=== PATIENT | female | born 1930 | race Caucasian/White ===

== ENCOUNTER 2017-10-02 08:22 | Observation (INO) | payer OTHER ==
[~2017-10-02] VITALS: Ht 144.8 cm; Wt 61.5 kg
[~2017-10-02 08:22] MED LIST: ACET325 PO; ALBU90OI61 INH; AMOX500 PO; DOCU100 PO; DULERA INH; FISH1000 PO; FLAX PO; FLUT.05NI; HYDACE5 PO; LOSA50 PO; METO50ER PO; MONT10T PO; NAPR500 PO; Protonix40 MG PO; RECLAST; ROSU10TA PO; RXHYD5325 PO; TIOT18 IH; TRAACE PO
[2017-10-02 12:03] LABS: Source, Urine Clean Catch
[2017-10-02 12:15] LABS: Appearance, Urine Clear (Clear); Bilirubin, Urine Neg (Neg); Blood, Urine 3+ (Neg); Color, Urine Yellow (P-Yellow); Glucose Qualitative, Urine Neg (Neg); Ketones, Urine Neg (Neg); Leukocyte Esterase, Urine 2+ (Neg); Nitrite, Urine Neg (Neg); Protein, Urine Neg (Neg); Urobilinogen, Urine NORM (Normal); pH, Urine 6.5 (5.0-8.0)
[2017-10-02 12:50] LABS: Bacteria Few /hpf; Squamous Epithelial Cells Few /hpf (Few)
[2017-10-02] MEDS ORDERED: ATOR20 PO (15:21)
[2017-10-02] MEDS ORDERED: LOSA50 PO (15:21)
[2017-10-02] MEDS ORDERED: MELO7.5 PO (15:22)
[2017-10-02] MEDS ORDERED: Elemental Calc600 MG PO (15:24)
[2017-10-02] MEDS ORDERED: MULTI VITAMIN1 EACH PO (15:25)
[2017-10-02] MEDS ORDERED: CHOL10002 PO (15:25)
[2017-10-02] MEDS ORDERED: BREO ELLIPTA 11 EACH MT (15:26)
[2017-10-02] MEDS ORDERED: MIRALAX17 GM PO (15:27)
[2017-10-02] MEDS ORDERED: HYDR1TAB94 PO (15:27)
[2017-10-02] MEDS ORDERED: ALBU90OI (15:28)
[2017-10-02] MEDS ORDERED: Ocuvite Lutein1 EACH PO (15:29)
[2017-10-02] MEDS ORDERED: INCRUSE ELLI62.5 MCG INH (15:29)
== END 2017-10-05 15:15 | disposition home or self-care (01) ==
LOC: ER 08:22 → MEDS 08:23
PROVIDERS: Emergency Medicine
DX: M54.9 Dorsalgia, unspecified (principal); I10 Essential (primary) hypertension; J44.9 Chronic obstructive pulmonary disease, unspecified; K21.9 Gastro-esophageal reflux disease without esophagitis; E78.5 Hyperlipidemia, unspecified; M81.0 Age-related osteoporosis without current pathological fracture; R26.9 Unspecified abnormalities of gait and mobility; Z79.899 Other long term (current) drug therapy; Z88.2 Allergy status to sulfonamides
CPT/HCPCS: 81001; 87086; 94640; 94760; 96372; 97110; 97116; 97162; 97530; 99285; G0378; G8978; G8979; J1885

== ENCOUNTER 2017-12-26 08:14 | Observation (INO) | payer OTHER ==
[~2017-12-26] VITALS: Ht 152.4 cm; Wt 59.7 kg
[~2017-12-26 08:14] MED LIST changes: +ALBU90OI; +ATOR20 PO; +BREO ELLIPTA 11 EACH MT; +CHOL10002 PO; +Elemental Calc600 MG PO; +HYDR1TAB94 PO; +INCRUSE ELLI62.5 MCG INH; +MELO7.5 PO; +MIRALAX17 GM PO; +MULTI VITAMIN1 EACH PO; +Ocuvite Lutein1 EACH PO
[2017-12-26] MEDS ORDERED: Metoprolol Succ25 MG PO (08:20)
[2017-12-26] MEDS ORDERED: LOSA50 PO (08:20)
[2017-12-26] MEDS ORDERED: PANT40 PO (08:21)
[2017-12-26] MEDS ORDERED: ATOR20 PO (08:21)
[2017-12-26] MEDS ORDERED: Mobic15 MG PO (08:21)
[2017-12-26] MEDS ORDERED: Norco 5-325 Ta1 EACH PO (10:42)
[2017-12-26] MEDS ORDERED: BREO ELLIPTA 11 EACH INH (14:21)
[2017-12-26] MEDS ORDERED: INCRUSE ELLI62.5 MCG INH (14:22)
[2017-12-26] MEDS ORDERED: ALBU90OI6 INH (14:23)
[2017-12-26] MEDS ORDERED: Super Calcium600 MG PO (14:26)
[2017-12-26] MEDS ORDERED: Hair, Skin & N1 EACH PO (14:27)
[2017-12-26] MEDS ORDERED: Ocuvite Lutein1 EACH PO (14:27)
[2017-12-26] MEDS ORDERED: Vitamin D2000 UNIT PO (14:27)
[2017-12-26] MEDS ORDERED: TYLENOL325 MG PO (14:28)
[2017-12-27 05:14] LABS: BASOPHILS ABSOLUTE AUTO 0.03 K/mm3 (0.00-0.23); BASOPHILS PERCENT AUTO 1 % (0-2); EOSINOPHILS ABSOLUTE AUTO 0.08 K/mm3 (0.00-0.68); EOSINOPHILS PERCENT AUTO 1 % (0-6); Hematocrit 37.9 % (33.0-51.0); Hemoglobin 12.6 g/dL (11.5-16.0); IMMATURE GRAN ABSOLUTE AUTO 0.02 K/mm3 (0.00-0.10); IMMATURE GRAN PERCENT AUTO 0 % (0-1); LYMPHOCYTES ABSOLUTE AUTO 0.63 K/mm3 (0.84-5.20); LYMPHOCYTES PERCENT AUTO 10 % (21-46); MONOCYTES ABSOLUTE AUTO 0.67 K/mm3 (0.16-1.47); MONOCYTES PERCENT AUTO 11 % (4-13); Mean Corpuscular HGB Conc 33.2 g/dL (31.5-36.5); Mean Corpuscular Volume 96 fL (80-100); Mean Platelet Volume 10.1 fL (9.1-12.4); NEUTROPHILS ABSOLUTE AUTO 4.94 K/mm3 (1.96-9.15); NEUTROPHILS PERCENT AUTO 78 % (41-73); Platelet Count 180 K/mm3 (150-400); RDW Coefficient Variation 12.5 % (11.7-14.2); RDW Standard Deviation 44.7 fL (35.1-46.3); Red Blood Cell Count 3.94 M/mm3 (3.80-5.20); White Blood Cell Count 6.37 K/mm3 (4.00-11.30)
[2017-12-31] MEDS ORDERED: ALBU2.5V5 NEB (15:37)
[2017-12-31] MEDS ORDERED: BISA10S PR (15:42)
[2017-12-31] MEDS ORDERED: BISA5EC PO (15:42)
[2017-12-31] MEDS ORDERED: SENN187 PO (15:45)
[2017-12-31] MEDS ORDERED: Milk Of Ma400 MG/5 M PO (15:45)
[2017-12-31] MEDS ORDERED: HYDR1TAB94 PO (15:45)
== END 2017-12-31 16:29 ==
LOC: ER 08:14 → MEDS 08:15 → ER 08:15 → MEDS 08:15 → ER 12-28 08:15 → MEDS 12-28 08:16
PROVIDERS: Family Medicine
DX: M80.88XA Other osteoporosis with current pathological fracture, vertebra(e), initial encounter for fracture (principal); I10 Essential (primary) hypertension; J44.9 Chronic obstructive pulmonary disease, unspecified; E78.00 Pure hypercholesterolemia, unspecified; H91.90 Unspecified hearing loss, unspecified ear; I42.1 Obstructive hypertrophic cardiomyopathy; M19.90 Unspecified osteoarthritis, unspecified site; K21.9 Gastro-esophageal reflux disease without esophagitis; Z79.899 Other long term (current) drug therapy; Z88.2 Allergy status to sulfonamides
CPT/HCPCS: 36415; 72100; 85025; 94640; 94760; 97110; 97116; 97162; 97530; 99285-25; G0378; G8978; G8979; J0360; J1650

== ENCOUNTER 2019-04-02 03:02 | Observation (INO) | payer OTHER ==
[~2019-04-02] VITALS: Ht 139.7 cm; Wt 128.0 kg
[~2019-04-02 03:02] MED LIST changes: +ALBU2.5V5 NEB; +ALBU90OI6 INH; +BISA10S PR; +BISA5EC PO; +BREO ELLIPTA 11 EACH INH; +Hair, Skin & N1 EACH PO; +Metoprolol Succ25 MG PO; +Milk Of Ma400 MG/5 M PO; +Mobic15 MG PO; +Norco 5-325 Ta1 EACH PO; +PANT40 PO; +SENN187 PO; +Super Calcium600 MG PO; +TYLENOL325 MG PO; +Vitamin D2000 UNIT PO
[2019-04-02 03:25] LABS: Hematocrit 46.1 % (33.0-51.0); Hemoglobin 15.2 g/dL (11.5-16.0); Mean Corpuscular HGB 32.3 pg (26.0-34.0); Mean Corpuscular Volume 98 fL (80-100); Mean Platelet Volume 9.6 fL (9.1-12.4); Platelet Count 264 K/mm3 (150-400); RDW Standard Deviation 43.8 fL (35.1-46.3)
[2019-04-02 03:46] LABS: Alanine Aminotransfer (ALT/SGP 25 U/L (12-78); Albumin, Blood 3.2 g/dL (3.4-5.0); Albumin/Globulin Ratio 0.8 (0.8-1.8); Alk Phos 54 U/L (50-136); Anion Gap 6 mmol/L (6-16); Aspartate Aminotrans (AST/SGOT 30 U/L (12-37); Bilirubin, Total 0.6 mg/dL (0.1-1.0); Blood Urea Nitrogen 23 mg/dL (8-24); Bun/Creatinine Ratio 58.4 (12.0-20.0); CHOL/HDL RATIO 2.6; CO2, Blood 29 mmol/L (21-32); Calcium, Blood 9.4 mg/dL (8.5-10.1); Chloride, Blood 102 mmol/L (98-108); Cholesterol 197 mg/dL (50-200); Creatinine, Blood 0.39 mg/dL (0.40-1.00); Glomerular Filtration Rate >60 (60-); Glucose, Blood 140 mg/dL (70-99); HDL Cholesterol 77 mg/dL (>39); LDL/HDL RATIO 1.3; Low Density Lipoprotein Chol 102 mg/dL (0-110); Magnesium, Blood 1.9 mg/dL (1.6-2.4); Potassium, Blood 4.3 mmol/L (3.5-5.5); Sodium, Blood 137 mmol/L (136-145); Total Protein, Blood 7.2 g/dL (6.4-8.2); Triglycerides 90 mg/dL (30-160); Troponin I 0.093 ng/mL (0.000-0.040); Very Low Density Lipoprot Chol 18 mg/dL (6-32)
[2019-04-02] MEDS ORDERED: MULTI-VITAMIN1 EAC2 PO (04:01)
[2019-04-02] MEDS ORDERED: Omega-31000 MG PO (04:01)
[2019-04-02] MEDS ORDERED: [UNRECOGNIZED DRUG - OTHER] PO (04:03)
[2019-04-02] MEDS ORDERED: HYDR1TAB94 PO (04:04)
[2019-04-02] MEDS ORDERED: PROLIA60 MG/1 ML SC (04:04)
[2019-04-02] MEDS ORDERED: OLME20 PO (04:04)
--- NOTE | 2019-04-02 07:24 | NUR ---
SHIFT SUMMARY PATIENT ARRIVED TO ICU @ 05:45. MONITORING EQUIPMENT WAS PLACED, HEPARIN GTT CONFIRMED. NO C/O PAIN. VSS. IT HAS BEEN A PLEASURE TAKING CARE OF THIS PATIENT.
--- NOTE | 2019-04-02 07:30 | NUR ---
ASSUMED CARE OF PT AT 0700. REPORT FROM CHRISTIAN HERNANDEZ. PT RESTING IN BED. A&OX 4. DENIES CP, SOB OR OTHER COMPLAINTS. HEPARIN INFUSING AT 13 UNITS/KG/MIN. HR 45-55, 1ST DEGREE BLOCK. PT P/W/D. LUNGS CLEAR. MAEW. ABD ROUND, SOFT AND NON TENDER. BT X 4. PT ABLE TO REPOSITION SELF IN BED. CALL LIGHT IN REACH. DR PATTEN AT BEDSIDE FOR ASSESSMENT. DISCUSSION REGARDING CODE STATUS, PT REQUESTING DNR/DNI. ORDER PLACED, DNR BAND APPLIED TO RIGHT WRIST. DAUGHTERS JERI AND HERB UPDATED AND AGREEABLE TO PLAN. PLAN FOR CONTINUED HEPARIN DRIP AND ECHO TODAY. WILL CONTINUE TO MONITOR.
[2019-04-02] MEDS ORDERED: ACET325 PO (07:50)
[2019-04-02] MEDS ORDERED: Refresh Eye Dr1 EACH (10:23)
[2019-04-02] MEDS ORDERED: REFRESH CELLUV1 EACH BOTHEYES (10:24)
--- NOTE | 2019-04-02 10:45 | NUR ---
Echocardiogram completed.
[2019-04-02] MEDS ORDERED: INCRUSE ELLI62.5 MCG INH (11:10)
--- NOTE | 2019-04-02 12:13 | NUR ---
DR PATTEN AT BEDSIDE TO DISCUSS RESULTS c PT AND FAMILY. JERI AND HERB PRESENT, HX AND CURRENT ECHO REVIEWED. PACEMAKER DISCUSSED, FAMILY DECLINED THIS INTERVENTION. WELDING MACHINE FEEDER UPDATED ON HOLDING METOROLOL THIS AM. POSSIBLE HOSPICE CARE DISCUSSED c PT AND FAMILY. AGREEABLE TO PALLATIVE CARE CONSULT, REINA NOTIFIED. DR PATTEN UPDATED DR CM. WILL CONTINUE TO MONITOR.
--- NOTE | 2019-04-02 13:05 | NUR ---
Initial palliative care consult: Marisol is an 88 year old lady who has a history of COPD, HTN, hypertrophic obstructive cardiomyopathy, GERD, macular degeneration,mitral regurgitation and uterine cancer. She was admitted to the ICU today for chest pain and increasing SOB. Marisol lives alone in a [place], [place]. Her dtr, Diamante comes twice a week on Mondays and Wednesdays to assist her with a shower, go out to eat and get a shopping together. Her other daughter, Lucina, comes on Fridays to assist with ADLs as needed. Marisol reports that she has a life alert system and wants to be able to remain as independent as possible for as long as she can. Marisol reports that she is homebound except for the one day each week that she is able to go out to lunch with her dtr. She reports her home is situated so she is able to access her refrigerator and heat meals with minimal physical exertion. She reports that she rinses her dishes and leaves them for her daughters to take care of on . She is able to ambulate with her walker, however her SOB has been increasing recently which makes ambulating much more difficult. Marisol and both her daughters verbalize understanding of Dr. Holley's consultation and findings. Marisol states that hospice is something she is considering. Explained hospice philosophy and answered questions. Provided them with hospice pamphlet and considering comfort care booklet per their request. Discussed expected disease progression and symptoms that will likely continue to worsen with time. They voice interest in hospice services but would like to discuss it as a family. Dtrs are concerned that they would need to work out the details of her increasing care needs. They want to do what's best for their mom, however they want to also respect her wishes of maintaining independence as long as possible. PC will allow Marisol and her daughters time to discuss the hospice option. Requested that they let staff know if they have additional questions or if they make a decision re: hospice. Farzaneh Hurst with social insurance administrator and nursing updated.
--- NOTE | 2019-04-02 15:38 | NUR ---
Requested by nursing to come to ICU lounge to talk with pt's daughters while Marisol is resting. Lucina and Diamante spoke with their mom after our conversation earlier today and they all have decided to pursue hospice services at discharge. They do not want to start comfort care while she is in the hospital. They are aware that Marisol remains at high risk for sudden cardiac . Both daughters agree they would like to respect their mom's wishes to remain as independent as possible for as long as possilbe. They both state that they will be more available to her and assist as needed while honoring her desire for independence. They report Marisol has a walker, a wheelchair, a BSC and an electric bed. The only equipment that they feel they will need at this time is home O2. They have chosen [facility]. Spoke with Farzaneh, social services manager, to update her. Pt's dtrs report that plan is likely to discharge pt tomorrow. Updated Dr. Blanco of pt's wishes to pursue hospice services at discharge. PC to remain available to assist with symptom managment and care planning.
--- NOTE | 2019-04-02 18:04 | NUR ---
SHIFT SUMMMARY DR PATTEN SPOKE AT LENGTH c PT AND DAUGHTERS REGARDING ECHO RESULTS AND DISEASE PROGRESSION. FAMILY MET kary HUANG FROM [facility]. PLAN FOR PT TO BE DISCHARGED TOMORROW ON HOSPICE. WILL NEED HOME O2. HEPARIN DRIP D/C'D THIS SHIFT. PT BRADYCARDIC ENTIRE SHIFT, RATE 45-50. REPORT TO KANU HERNANDEZ RN. PT TRANSFERRED TO MEDICAL FLOOR.
--- NOTE | 2019-04-02 18:38 | NUR ---
ARRIVED TO ROOM VIA W/C TRANSFER TO BED WITH MINIMAL ASSIST. A AND OX2 CONFUSED AT TIMES. DNR/DNI TRANSFERRING TO HOSPICE UPON DISCHARGE. PLEASANT. FREQUENT ROUNDING EXPLAINED TO PATIENT. CALL LIGHT WITHIN REACH AND BED LOW AND IN LOCKED POSITON. WATER PROVIDED AND AT BEDSIDE.
--- NOTE | 2019-04-03 06:03 | NUR ---
SHIFT SUMMARY PT APPEARS TO BE SLEEPING ON AND OFF T/O THE NIGHT. SHE WOKE UP SUDDENLY AND YELLED, "HELP!" IN THE MIDDLE OF THE NIGHT. SHE NEEDED TO USE THE RESTROOM WHEN ASKED. SHE USED THE BSC X2 TONIGHT W/O ANY DIFFICULTY. SHE HAD NO OTHER PROBLEMS.
--- NOTE | 2019-04-03 12:10 | NUR ---
PT DISCHARGED AT 1200 WITH DAUGHTER TO GO HOME ON HOSPICE. PT AO AND COOPERATIVE OF CARE. HOSPICE NURSE WAS IN TO SEE PT AND DAUGHTER PRIOR TO DISCHARGE. PT AND DAUGHTER HAD ALL PAPERWORK REVIEWED AND SIGNED WITH EDUCATIONAL MATERIAL. PT ESCORTED OUT TO CARE VIA WHEEL CHAIR BY THE AID NO DISTRESS NOTED.
== END 2019-04-03 12:04 | disposition home or self-care (01) ==
LOC: ER 03:02 → ICUW 03:03 → MEDS 03:03 → ICUW 03:03 → ER 05:35 → ICUW 05:55 → MEDS 18:34 → ENPENDDIS 04-03 10:30 → MEDS 04-03 12:04
PROVIDERS: Emergency Medicine; ADMIT Hospitalist
DX: I21.A1 Myocardial infarction type 2 (principal); J96.01 Acute respiratory failure with hypoxia; J44.9 Chronic obstructive pulmonary disease, unspecified; I42.2 Other hypertrophic cardiomyopathy; I10 Essential (primary) hypertension; E78.5 Hyperlipidemia, unspecified; H35.30 Unspecified macular degeneration; K21.9 Gastro-esophageal reflux disease without esophagitis; I34.0 Nonrheumatic mitral (valve) insufficiency; C56.9 Malignant neoplasm of unspecified ovary; I42.1 Obstructive hypertrophic cardiomyopathy; M81.0 Age-related osteoporosis without current pathological fracture; E78.00 Pure hypercholesterolemia, unspecified; Z66 Do not resuscitate; Z90.710 Acquired absence of both cervix and uterus; Z88.2 Allergy status to sulfonamides; Z79.1 Long term (current) use of non-steroidal anti-inflammatories (NSAID); Z79.51 Long term (current) use of inhaled steroids; Z79.899 Other long term (current) drug therapy
CPT/HCPCS: 36415; 71045; 80053; 80061; 83735; 84145; 84443; 84484; 85027; 85730; 86850; 86900; 86901; 93005; 93010; 93306; 94640; 94644; 94760; 96365; 96375; 96376; 99285-25; A9270; G0378; J1644; J2270; J2405; J2930